=== PATIENT | male | born 1955 | race Caucasian/White ===

== ENCOUNTER 2020-09-06 03:32 | Emergency (ER) | payer MEDICAID ==
[~2020-09-06] VITALS: Ht 170.2 cm; Wt 81.8 kg
[2020-09-06 03:41] VITALS: BP 100/60; Ht 170.2 cm; Wt 81.8 kg
[2020-09-06] MEDS ORDERED: [UNRECOGNIZED DRUG - REMARK] (03:47)
[2020-09-06] MEDS ORDERED: COREG CR10 MG PO (03:47)
[2020-09-06] MEDS ORDERED: BAYER CHEWABLE81 MG PO (03:47)
== END 2020-09-06 05:19 | disposition left against medical advice (07) ==
LOC: D.ER 03:32
DX: R05 Cough (principal); R50.9 Fever, unspecified; M79.10 Myalgia, unspecified site; F17.210 Nicotine dependence, cigarettes, uncomplicated; I10 Essential (primary) hypertension; I25.2 Old myocardial infarction; E78.5 Hyperlipidemia, unspecified; J44.9 Chronic obstructive pulmonary disease, unspecified